=== PATIENT | male | born 1940 | race Caucasian/White ===

== ENCOUNTER 2019-03-01 10:47 | Emergency (ER) | payer OTHER ==
[~2019-03-01] VITALS: Ht 190.5 cm; Wt 126.8 kg
[2019-03-01 10:54] VITALS: BP 151/91; Ht 190.5 cm; Wt 126.8 kg
[2019-03-01] MEDS ORDERED: ELIQUIS5 MG PO (11:01)
[2019-03-01] MEDS ORDERED: LIPITOR80 MG PO (11:01)
[2019-03-01] MEDS ORDERED: COREG25 MG PO (11:02)
[2019-03-01] MEDS ORDERED: TRICOR145 MG PO (11:02)
[2019-03-01] MEDS ORDERED: AFINITOR10 MG PO (11:02)
[2019-03-01] MEDS ORDERED: XALATAN 0.0052.5 ML EACH EYE (11:03)
[2019-03-01] MEDS ORDERED: PROSCAR5 MG PO (11:03)
[2019-03-01] MEDS ORDERED: SYNTHROID100 MCG PO (11:03)
[2019-03-01] MEDS ORDERED: FLOMAX0.4 MG PO (11:04)
== END 2019-03-01 11:31 | disposition home or self-care (01) ==
LOC: D.ER 10:47
DX: S50.02XA Contusion of left elbow, initial encounter (principal); X58.XXXA Exposure to other specified factors, initial encounter; I10 Essential (primary) hypertension; E11.9 Type 2 diabetes mellitus without complications

== ENCOUNTER 2019-04-20 16:19 | Emergency (ER) | payer OTHER ==
[~2019-04-20 16:19] MED LIST: AFINITOR10 MG PO; COREG25 MG PO; ELIQUIS5 MG PO; FLOMAX0.4 MG PO; LIPITOR80 MG PO; PROSCAR5 MG PO; SYNTHROID100 MCG PO; TRICOR145 MG PO; XALATAN 0.0052.5 ML EACH EYE
[2019-04-20 16:38] VITALS: BMI 35.9
[2019-04-20] MEDS ORDERED: AFINITOR10 MG PO (16:47)
[2019-04-20] MEDS ORDERED: HYDRALAZINE HCL10 MG PO (16:48)
[2019-04-20] MEDS ORDERED: BAYER CHEWABLE81 MG PO (16:49)
[2019-04-20] MEDS ORDERED: VITAMIN D3400 UNI1 PO ×2 (16:49→16:50)
[2019-04-20 17:28] LABS: BASOPHILS 0.4 % (0-2); EOSINOPHILS 4.3 % (0-7); HEMATOCRIT 31.4 % (42.0-54.0); HEMOGLOBIN 10.1 g/dL (13.5-17.5); IMMATURE GRANULOCYTES 0.6 % (0-5); LYMPHOCYTES 10.4 % (15-50); MCH 29.1 pg (26.0-34.0); MCHC 32.2 g/dL (31.0-37.0); MCV 90.5 fL (80.0-100.0); MEAN PLATELET VOLUME 11.1 fL (7.4-10.4); NEUTROPHILS 72.3 % (40-80); PLATELET COUNT 112 10x3/uL (130-400); RBC 3.47 10x6/uL (4.20-6.10); RDW 15.5 % (11.5-14.5); WBC 5.1 10x3/uL (4.8-10.8)
[2019-04-20 17:44] LABS: APTT 48.2 SECONDS (22.8-39.4); INR 1.51 (0.85-1.17); PROTIME 17.6 SECONDS (11.6-15.0)
[2019-04-20 18:00] LABS: ALBUMIN 3.1 g/dL (3.4-5.0); ALKALINE PHOSPHATASE 38 U/L (46-116); ALT (SGPT) 24 U/L (10-68); BILIRUBIN - TOTAL 0.55 mg/dL (0.2-1.3); CALC OSMOLALITY 293 mosm/kg (275-300); CALCIUM 8.7 mg/dL (8.5-10.1); CARBON DIOXIDE 28.1 mmol/L (21.0-32.0); CHLORIDE - SERUM 107 mmol/L (98-107); CREATININE - SERUM 1.9 mg/dL (0.6-1.3); GLUCOSE 203 mg/dL (74-106); PROTEIN - SERUM 6.9 g/dL (6.4-8.2); SODIUM 143 mmol/L (136-145); UREA NITROGEN 22 mg/dL (7-18); eGFR NON AFRICAN AMERICAN 37 mL/min (90-120)
[2019-04-20 18:24] LABS: CKMB 1.9 U/L (0.0-3.6); CREATINE KINASE 335 UL (21-232); PRO BNP 5044 pg/mL (0-450); TROPONIN-I < 0.017 ng/mL (0.000-0.060)
[2019-04-20 23:13] VITALS: BP 166/92
== END 2019-04-20 23:15 | disposition other institution (70) ==
LOC: D.ER 16:19
PROVIDERS: Emergency Medicine
DX: R06.02 Shortness of breath (principal); I50.9 Heart failure, unspecified; Z85.118 Personal history of other malignant neoplasm of bronchus and lung; J90 Pleural effusion, not elsewhere classified; J18.9 Pneumonia, unspecified organism